=== PATIENT | male | born 1965 | race Caucasian/White ===

== ENCOUNTER 2016-09-21 07:11 | Day surgery (SDC) | payer BC ==
--- NOTE | ~2016-09-21 | EGD ---
EGD REPORT [facility] [address] [place] [id number] NAME: CARRIE AREVALO III : 67 STATUS : REG [facility] [place] PAT#: [id number] AGE: 51 ADM/REG DATE : 09/21/16 MR#: [id number] REPORT SERV DATE: 09/21/16 DICTATED BY: JACI ZUNIGA DATE: 09/21/16 REPORT STATUS : Draft TRANSCRIBED BY: [employer] DATE: 09/21/16 [facility] Patient Name: Carrie Arevalo Iii Date of : 1965 Attending MD: JACI ZUNIGA, Procedure Date No Time: 09/21/2016 Procedure: Colonoscopy Indications: Screening for colorectal malignant neoplasm Referring MD: Ismael Mohan Medicines: Monitored Anesthesia Care Complications: No immediate complications. Estimated blood loss: None. Procedure: Pre-Anesthesia Assessment: - ASA Grade Assessment: III - A patient with severe systemic disease. After I obtained informed consent, the scope was passed under direct vision. Throughout the procedure, the patient's blood pressure, pulse, and oxygen saturations were monitored continuously. The CF [id number] was introduced through the anus and advanced to the cecum, identified by appendiceal orifice and ileocecal valve. The colonoscopy was performed without difficulty. The patient tolerated the procedure well. The quality of the bowel preparation was adequate. Findings: The perianal and digital rectal examinations were normal. A sessile polyp was found in the ascending colon. The polyp was 10 mm in size. The polyp was removed with a hot snare. Resection and retrieval were complete. Verification of patient identification for the specimen was done. Estimated blood loss was minimal. A sessile polyp was found in the ascending colon. The polyp was 5 mm in size. The polyp was removed with a cold snare. Resection and retrieval were complete. Verification of patient identification for the specimen was done. Estimated blood loss was minimal. A sessile polyp was found in the recto-sigmoid colon. The polyp was 8 mm in size. The polyp was removed with a hot snare. Resection and retrieval were complete. Verification of patient identification for the specimen was done. Estimated blood loss was minimal. Four sessile polyps were found in the rectum and in the recto-sigmoid colon. The polyps were 3 to 5 mm in size. These polyps were removed with a cold snare. Resection and retrieval were complete. Verification of patient identification for the specimen was done. Estimated blood loss was minimal. Internal hemorrhoids were found during retroflexion and were Grade II (internal hemorrhoids that prolapse but reduce spontaneously). EGD REPORT [address] [place]. [address] NAME: CARRIE AREVALO III : 67 STATUS : REG [facility] [place] PAT#: [id number] AGE: 51 ADM/REG DATE : 09/21/16 MR#: [id number] REPORT SERV DATE: 09/21/16 DICTATED BY: JACI ZUNIGA DATE: 09/21/16 REPORT STATUS : Draft TRANSCRIBED BY: [employer] DATE: 09/21/16 The exam was otherwise without abnormality on direct and retroflexion views. Impression: - One 10 mm polyp in the ascending colon. Resected and retrieved. - One 5 mm polyp in the ascending colon. Resected and retrieved. - One 8 mm polyp at the recto-sigmoid colon. Resected and retrieved. - Four 3 to 5 mm polyps in the rectum and at the recto-sigmoid colon. Resected and retrieved. - Internal hemorrhoids. - The examination was otherwise normal on direct and retroflexion views. Recommendation: - Patient has a contact number available for emergencies. The signs and symptoms of potential delayed complications were discussed with the patient. Return to normal activities tomorrow. Written discharge instructions were provided to the patient. - Return to previous diet. - Continue present medications. - Await pathology results. - Repeat colonoscopy for surveillance based on pathology results. Procedure Code(s): --- Professional --- 65664, Colonoscopy, flexible, proximal to splenic flexure; with removal of tumor(s), polyp(s), or other lesion(s) by snare technique Diagnosis Code(s): --- Professional --- K62.1, Rectal polyp D12.7, Benign neoplasm of rectosigmoid junction D12.2, Benign neoplasm of ascending colon K64.1, Second degree hemorrhoids Z12.11, Encounter for screening for malignant neoplasm of colon CPT copyright 2013 [employer]. All rights reserved. The codes documented in this report are preliminary and upon maintenance job titles review may be revised to meet current compliance requirements. DARYA GHOTRA REPORT [facility] [address] [address] NAME: CARRIE AREVALO III : 67 STATUS : REG [facility]#: [id number] AGE: 51 ADM/REG DATE : 09/21/16 MR#: [id number] REPORT SERV DATE: 09/21/16 DICTATED BY: JACI ZUNIGA DATE: 09/21/16 REPORT STATUS : Draft TRANSCRIBED BY: [employer] DATE: 09/21/16 09/21/2016 9:36 AM Number of Addenda: 0 Note Initiated On: 09/21/2016 8:56 AM Scope Withdrawal Time 0 hours 16 minutes 3 seconds [id number] [place] [id number]
[~2016-09-21 07:11] MED LIST: ADVAIR250 INH; ASAB PO; CRESTOR40 MG PO; FISH OIL; FLAX SEED; LISINOPRIL40 MG PO; NAP500 PO; NORV10 PO; PROAIR HFA INH; TRULICITY0.75 MG/0. SQ
== END 2016-09-21 23:59 | disposition home or self-care (01) ==
LOC: DMU 07:11
PROVIDERS: Internal Medicine Gastroenterology
PROC: 0DBP8ZX Excision of Rectum, Via Natural or Artificial Opening Endoscopic, Diagnostic (ICD-10-PCS; 2016-09-21)
PROC: 0DBK8ZX Excision of Ascending Colon, Via Natural or Artificial Opening Endoscopic, Diagnostic (ICD-10-PCS; principal; 2016-09-21 07:30)
DX: Z12.11 Encounter for screening for malignant neoplasm of colon (principal); D12.7 Benign neoplasm of rectosigmoid junction; K63.5 Polyp of colon; K64.1 Second degree hemorrhoids; E66.01 Morbid (severe) obesity due to excess calories; I10 Essential (primary) hypertension; J45.909 Unspecified asthma, uncomplicated; E11.9 Type 2 diabetes mellitus without complications; Z79.899 Other long term (current) drug therapy; Z79.82 Long term (current) use of aspirin; Z87.891 Personal history of nicotine dependence
CPT/HCPCS: 82962; 88305